=== PATIENT | female | born 1985 | race Caucasian/White ===

== ENCOUNTER 2021-08-20 19:39 | Inpatient (IN) | payer MEDICAID, SELFPAY ==
[2021-08-20 19:39] VITALS: BMI 46.0
[2021-08-20 20:39] VITALS: BP 138/81; PULSE 87; RESP 20; TEMP 36.4; O2SAT 98
[2021-08-20] MEDS: quetiapine 100 mg Tablet 200 MG PO (20:47)
[2021-08-20] MEDS: gabapentin 300 mg Capsule PO (20:47)
[2021-08-20] MEDS: ibuprofen 800 mg tablet PO (20:47)
--- NOTE | 2021-08-21 03:32 | PC.ADMIT ---
[address] Admission Note: The patient,Cecille Cobb,36 y/o, was given written information regarding hospital policies, unit procedures and contact persons. Patient's smoking status: . Vital Signs - 8 hr 08/20/21 20:39 Temperature 97.6 F Pulse Rate 87 Respiratory Rate 20 H Blood Pressure 138/81 Pulse Oximetry 98 This is a 36 year old woman here for SI. She told staff members she would jump in front of a semi-truck or hang herself. Patient does cut herself. She has had 3 previous inpatient stays, the most recent time being in January 2021 in [place]. She drinks heavily, states 375 ml of liquor daily with a few beers. Patient last drank a few days ago. Drug screen was positive for THC. She has a history of methamphetamine and heroin use. She stopped taking all of her medications.
[2021-08-21 06:00] VITALS: BP 128/63; PULSE 79; RESP 18; TEMP 36.6; O2SAT 97
[2021-08-21] MEDS: ibuprofen 800 mg tablet PO ×3 (08:20→20:09)
[2021-08-21] MEDS: gabapentin 300 mg Capsule PO ×3 (08:20→20:09)
[2021-08-21] MEDS: duloxetine 60 mg Capsule PO ×2 (08:21→17:32)
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
[2021-08-21] MEDS: buPROPion XL (24 HR) 150 mg Tablet PO (09:15)
[2021-08-21] MEDS: hyDROXYzine 25 mg Capsule 50 MG PO (09:15)
[2021-08-21 13:49] VITALS: BP 133/84; PULSE 75; RESP 17; TEMP 36.8; O2SAT 99
[2021-08-21] MEDS: quetiapine 100 mg Tablet 200 MG PO (20:10)
[2021-08-21 20:42] VITALS: BP 132/83; PULSE 66; RESP 17; TEMP 36.6; O2SAT 98
[2021-08-21 22:00] VITALS: BP 132/83; PULSE 66; RESP 17; TEMP 36.6; O2SAT 98
[2021-08-22 06:00] VITALS: BP 103/70; PULSE 76; RESP 18; TEMP 36.9; O2SAT 98
[2021-08-22] MEDS: ibuprofen 800 mg tablet PO ×3 (10:15→20:37)
[2021-08-22] MEDS: gabapentin 300 mg Capsule PO ×3 (10:15→20:38)
[2021-08-22] MEDS: duloxetine 60 mg Capsule PO ×2 (10:15→17:53)
[2021-08-22] MEDS: buPROPion XL (24 HR) 150 mg Tablet PO (10:15)
[2021-08-22 14:00] VITALS: BP 135/72; PULSE 64; RESP 18; TEMP 36.9; O2SAT 98
[2021-08-22] MEDS: hyDROXYzine 25 mg Capsule 50 MG PO (16:05)
--- NOTE | 2021-08-22 16:47 | P.NPUPN_ITS ---
Subjective NPU Subjective: Interval history: Patient is today reporting that she doing okay with the medication. She reports having off medication for a while. She expressed concern about the Seroquel not being increased to 300 yet. We reported and discussed however that there is an option for as needed dose that have been initiated. Otherwise she reports that she is feeling that getting back on medication has helped and she is feeling better and is hopeful that she will be able to continue improvement in discharge soon. Mental Status Exam MSE Comments: This is an obese versus morbidlyobese white female with hospital scrubs on with limited grooming and adequate eye contact. Vital movements except for mild psychomotor retardation. Cooperative exam in no acute distress. Speech was slightly decreased rate and volume. Mood described as a little better, affect slightly subdued. Thought process organized. Thought content: Patient denied suicidal homicidal ideation, there were no delusions reported noted, she denied auditory visual hallucinations. Attention and concentration appear intact and memory appeared reliable but none formally tested. Alert and oriented x3. Insight and judgment are limited, impulse control appears limited. Vitals/I&O/Wt Last Vital Signs Temp 98.2 F 08/22/21 22:00 Pulse 68 08/22/21 22:00 Resp 20 H 08/22/21 22:00 BP 154/71 08/22/21 22:00 Pulse Ox 97 08/22/21 22:00 A&P Assessment and plan (1) PTSD (post-traumatic stress disorder): Status: Acute (2) Suicidal ideation: Status: Acute (3) Anxiety: Status: Acute (4) Depression: Status: Acute Plan This is a 36-year-old female who reports 3 hospitalizations for anxiety depression and suicidal ideation last year.? She has been diagnosed with PTSD and borderline personality disorder Plan: 1.? Continue current medication.? We will increase Cymbalta to 60 mg twice a day and add Wellbutrin 150 mg increasing to 300 mg in 2 days. 2.? Continue every 15 minute checks for safety. 3.? Encourage individual, group and milieu therapies. 4.? Encourage sober living treatment after discharge at the highest level of care to which she is willing to commit. Attestations NPU Medical Necessity Statement*: Inpatient hospitalization is medically necessary and the clinically appropriate intervention at this time.? We will initiate medications and make changes as indicated.?Likely length of stay 2-5 days Coding Level of Care Code Acute Engineer Exhauster for Chg Fwd Diagnoses PTSD (post-traumatic stress disorder) F43.10 Suicidal ideation R45.851 Anxiety F41.9 Depression F32.A
[2021-08-22] MEDS: quetiapine 100 mg Tablet 200 MG PO (20:38)
[2021-08-22 22:00] VITALS: BP 154/71; PULSE 68; RESP 20; TEMP 36.8; O2SAT 97
[2021-08-23 06:00] VITALS: BP 129/83; PULSE 63; RESP 18; TEMP 36.8; O2SAT 97
[2021-08-23] MEDS: hyDROXYzine 25 mg Capsule 50 MG PO (07:38)
[2021-08-23] MEDS: gabapentin 300 mg Capsule PO ×3 (09:38→20:34)
[2021-08-23] MEDS: duloxetine 60 mg Capsule PO ×2 (09:38→18:41)
[2021-08-23] MEDS: buPROPion XL (24 HR) 150 mg Tablet PO (09:38)
[2021-08-23] MEDS: ibuprofen 800 mg tablet PO ×3 (09:38→20:34)
[2021-08-23 14:00] VITALS: BP 140/72; PULSE 73; RESP 17; TEMP 36.9; O2SAT 98
--- NOTE | 2021-08-23 14:20 | P.NPUPN_ITS ---
Subjective NPU Subjective: Interval history: Patient presents today reporting that she is still feeling like sleep is a problem and still had not utilize the as needed Seroquel that Dr. Rizzo had initiated. We discussed the risk benefits and alternatives of giving 300 mg of Seroquel p.o. nightly as she had requested and as she thought was going to be the plan. She understood and agreed to proceed as is documented in this note. Made the change and she reports that overall she is feeling significantly better. We discussed the possibility of discharge in the morning. She worked with the social work team to get arrangements to return back to her family where she was previously living. Mental Status Exam MSE Comments: This is an obese versus? morbidly obese white female with hospital scrubs on with limited grooming and adequate eye contact.? No abnormal movements except for mild psychomotor retardation.? Cooperative exam in no acute distress.? Speech was slightly decreased rate and volume.? Mood described as a little better, affect less subdued.? Thought process organized.? Thought content: Patient denied suicidal or homicidal ideation, there were no delusions reported or noted, she denied auditory or visual hallucinations.? Attention and concentration appear intact and memory appeared reliable but none were formally tested.? She was alert and oriented x3.? Insight and judgment are limited, but improving. Impulse control appears limited. Vitals/I&O/Wt Last Vital Signs Temp 98.4 F 08/23/21 14:00 Pulse 73 08/23/21 14:00 Resp 17 08/23/21 14:00 BP 140/72 08/23/21 14:00 Pulse Ox 98 08/23/21 14:00 A&P Assessment and plan (1) PTSD (post-traumatic stress disorder): Status: Acute (2) Suicidal ideation: Status: Acute (3) Anxiety: Status: Acute (4) Depression: Status: Acute Plan This is a 36-year-old female who reports 3 hospitalizations for anxiety depression and suicidal ideation last year.? She has been diagnosed with PTSD and borderline personality disorder Plan: 1.? Continue current medication.? We will increase Cymbalta to 60 mg twice a day and add Wellbutrin 150 mg increasing to 300 mg in 2 days. 2.? Continue every 15 minute checks for safety. 3.? Encourage individual, group and milieu therapies. 4.? Encourage sober living treatment after discharge at the highest level of care to which she is willing to commit. Attestations NPU Medical Necessity Statement*: Inpatient hospitalization is medically necessary and the clinically appropriate intervention at this time.? We will initiate medications and make changes as indicated.?Likely length of stay 1-3 days Coding Level of Care Code Acute Manager Chemical for Chg Fwd Diagnoses PTSD (post-traumatic stress disorder) F43.10 Suicidal ideation R45.851 Anxiety F41.9 Depression F32.A
[2021-08-23] MEDS: quetiapine 300 mg Tablet PO (20:34)
[2021-08-23 20:53] VITALS: BP 165/81; PULSE 94; RESP 16; TEMP 36.8; O2SAT 98
[2021-08-24 06:00] VITALS: BP 135/79; PULSE 84; RESP 16; O2SAT 98
[2021-08-24] MEDS: gabapentin 300 mg Capsule PO ×2 (10:07→15:22)
[2021-08-24] MEDS: ibuprofen 800 mg tablet PO ×2 (10:07→15:22)
[2021-08-24] MEDS: duloxetine 60 mg Capsule PO (10:08)
[2021-08-24] MEDS: buPROPion XL (24 HR) 150 mg Tablet PO (10:08)
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
[2021-08-24 10:51] VITALS: BP 135/79; PULSE 84; RESP 16; O2SAT 98
== END 2021-08-24 15:55 | disposition home or self-care (01) | DRG 881 ==
PROVIDERS: Admitting Provider Psychiatry & Neurology Psychiatry; Visit Provider Psychiatry & Neurology Psychiatry
DX: F32.A Depression, unspecified (principal); R45.851 Suicidal ideations; Z68.42 Body mass index [BMI] 45.0-49.9, adult; F41.9 Anxiety disorder, unspecified; F43.10 Post-traumatic stress disorder, unspecified; F60.3 Borderline personality disorder; E66.01 Morbid (severe) obesity due to excess calories
CPT/HCPCS: 97150; 97165